=== PATIENT | female | born 1960 | race Caucasian/White ===

== ENCOUNTER → 2017-01-22 | Outpatient (CLI) | payer OTHER ==
--- NOTE | 2017-01-28 09:11 | RSPPFT ---
DATE OF PROCEDURE: 01/22/17 COMMENTS: VOLUMES DYNAMIC: FVC and FEV1 normal. STATIC: RV, FRC mildly increased; TLC normal. FLOWS: FEV1% normal; FEF 25-75 normal. DIFFUSION: Normal. FLOW VOLUME LOOP: Normal configuration. IMPRESSION: Essentially normal pulmonary functions with no significant airways obstruction or restriction and no reduction in diffusion. There is no improvement post-bronchodilator. Airways resistance is normal.
== END ==
LOC: HRSP 10:44
PROVIDERS: ATTEND Internal Medicine
DX: R06.02 Shortness of breath (principal); R05 Cough
CPT/HCPCS: 94060; 94726; 94729; 95012